=== PATIENT | female | born 1980 | race Caucasian/White ===

== ENCOUNTER 2019-06-04 07:10 | Day surgery (SDC) | payer OTHER ==
[~2019-06-04 07:10] MED LIST: GILTUSS TR TAB1 EACH
== END 2019-06-04 11:50 | disposition home or self-care (01) ==
LOC: CIR.AMB 07:10
DX: O02.1 Missed abortion (principal)

== ENCOUNTER 2020-05-02 11:32 | Emergency (ER) | payer OTHER ==
[~2020-05-02] VITALS: Ht 152.4 cm; Wt 65.8 kg
[2020-05-02] MEDS ORDERED: PRENA1 CHEW TA1.4 MG (11:45)
== END 2020-05-02 14:39 | disposition home or self-care (01) ==
LOC: ER 11:32
DX: O20.8 Other hemorrhage in early pregnancy (principal); Z3A.08 8 weeks gestation of pregnancy